=== PATIENT | female | born 1950 | race Two or more races ===

== ENCOUNTER 2020-09-19 00:42 | Inpatient (IN) | payer MEDICARE, OTHER ==
[~2020-09-19] VITALS: Ht 162.6 cm; Wt 84.4 kg
[2020-09-19] MEDS ORDERED: ONDANSETRON 4 MG/2 ML VIAL ONE (01:12)
[2020-09-19 01:13] LABS: HEMATOCRIT 23.8 % (31.2-41.9); MEAN CORPUSCULAR VOLUME 97.1 fL (75.5-95.3); PLATELET COUNT (AUTO) 127 K/uL (179-408)
[2020-09-19] MEDS ORDERED: MORPHINE SULFATE 2 MG/1 ML DISP.SYRIN ONE (01:13)
[2020-09-19] MEDS ORDERED: ONDANSETRON 4 MG/2 ML VIAL IV ONE (01:15)
[2020-09-19] MEDS ORDERED: MORPHINE SULFATE 2 MG/1 ML DISP.SYRIN IV ONE (01:15)
--- NOTE | 2020-09-19 01:16 | NUR ---
Pt bib ra today from home c/o generalized weakness and severed rt knee and rt elbow pain. The pt. reports she slipped and fell this evening at about 7pm, and did not hit her head or lose consciousness. Pt. missed 6 days of dialysis, here last dialysis was 09/14/20. Pt. started feeling weak and having diarrhea yesterday evening, causing her to miss her dialysis appointment yesterday.
[2020-09-19 01:20] LABS: BILIRUBIN,DIRECT 0.4 mg/dL (0.0-0.2); BILIRUBIN,TOTAL 0.6 mg/dL (0.2-1.0)
--- NOTE | 2020-09-19 01:30 | NUR ---
Dialysis fistula is on left arm
--- NOTE | 2020-09-19 01:32 | NUR ---
behavioral health tech Jose Potassium 6.6, Creatinine 8.00. MD Fajardo notified and made aware. No pending orders at this time.
[2020-09-19 01:34] LABS: POTASSIUM 6.6 mmol/L (3.5-5.1)
[2020-09-19] MEDS ORDERED: WARF3TAB59 PO (01:37)
[2020-09-19] MEDS ORDERED: CARV25TA2 PO (01:37)
[2020-09-19] MEDS ORDERED: ATOR80TA PO (01:37)
[2020-09-19] MEDS ORDERED: MORPHINE SULFATE 4 MG/1 ML DISP.SYRIN IV ONE (01:45)
[2020-09-19] MEDS ORDERED: INSULIN REGULAR, HUMAN 300 UNIT/3 ML VIAL IV ONE (01:45)
[2020-09-19] MEDS ORDERED: CALCIUM CHLORIDE 1 GM/10 ML DISP.SYRIN IVP ONE ×2 (01:45→01:49)
[2020-09-19] MEDS ORDERED: DEXTROSE 50% 50 ML DISP.SYRIN IV ONE ×2 (01:45→06:15)
[2020-09-19] MEDS ORDERED: SODIUM BICARBONATE 8.4% 50 MEQ/50 ML DISP.SYRIN IV ONE ×2 (01:45→01:50)
[2020-09-19] MEDS ORDERED: DEXTROSE 50% 50 ML DISP.SYRIN ONE ×2 (01:49→06:16)
[2020-09-19] MEDS ORDERED: INSULIN LISPRO 300 UNIT/3 ML VIAL SQ ONE (01:50)
[2020-09-19] MEDS ORDERED: MORPHINE SULFATE 4 MG/1 ML DISP.SYRIN ONE (02:06)
[2020-09-19] MEDS ORDERED: diphenhydrAMINE 50 MG/1 ML VIAL ONE (02:17)
[2020-09-19] MEDS ORDERED: HYDROMORPHONE 1 MG/1 ML DISP.SYRIN IV ONE (02:30)
[2020-09-19] MEDS ORDERED: diphenhydrAMINE 50 MG/1 ML VIAL IV ONE (02:30)
[2020-09-19] MEDS ORDERED: HYDROMORPHONE 1 MG/1 ML DISP.SYRIN ONE (02:38)
--- NOTE | 2020-09-19 03:37 | NUR ---
Pt taken to CT.
--- NOTE | 2020-09-19 04:03 | NUR ---
Pt returned from CT
--- NOTE | 2020-09-19 04:50 | NUR ---
Gave report to SARITHA Rahman.
--- NOTE | 2020-09-19 04:50 | NUR ---
Shelly engel in [facility] - 09/19/20 at 0451 by RUDY Gave report to SARITHA Bhat.
--- NOTE | 2020-09-19 04:51 | NUR ---
Shelly engel in [facility] - 09/19/20 at 0640 by RUDY Gave report to RN. Lise
[2020-09-19] MEDS ORDERED: Z GUARD REMEDY PASTE 57 GM TUBE TOP PRN (05:15)
[2020-09-19] MEDS ORDERED: MAGNESIUM HYDROXIDE 30 ML LIQUID UDC PO PRN (05:15)
[2020-09-19 06:00] LABS: POTASSIUM 5.7 mmol/L (3.5-5.1)
--- NOTE | 2020-09-19 06:20 | NUR ---
Jose from lab called and reported pt. blood glucose is 49. Dr. Fajardo notified. 50 mL 50% dextrose IVP ordered by Dr Fajardo and given by me. Pt. also given fabian crackers and saltines to eat. Pt is A&Ox4. Tray also ordered from dietary. Will continue to follow up on blood glucose.
--- NOTE | 2020-09-19 07:45 | NUR ---
Admitted 70 y/o female Dx Hyperkalemia from ER on a wheelchair. She is alert/oriented x4, able to make needs known. Denies pain at the time of arrival. She had x1 episode of vomiting upon transferring to the bed. Noted with redness on the right elbow. Redness and bruise noted on the right knee with minimal edema identified. She has knee support on. Skin intact to the sacral area. AV Fistula on the left upper arm noted, intact , no s/s of bleeding. WS WNL. Arrived with o2 at 2LPM via NC, saturating at 100%. No SOB or respiratory/acute distress identified. Denies chest pain. Belongings list done. Oriented the patient to her room, call light within reach. All needs attended. Seen by Dr. Knott, consent for hemodialysis was obtained. Dr Lazar aware of admission. Daughter is at bedside.
[2020-09-19] MEDS: CARVEDILOL 25 MG TABLET PO SCH ×2 (09:19→18:00)
[2020-09-19 11:31] VITALS: BP 103/40
--- NOTE | 2020-09-19 12:00 | NUR ---
Daughter reported the patient is diabetic. Reported to BRISEYDA Virk. Ordered one time accucheck due to low blood pressure. Patient blood sugar reading is 120mg/dL, CORPORATE QUALITY MANAGER aware. No order for routine accucheck given. Will continue to monitor patient for any significant changes.
[2020-09-19] MEDS: ONDANSETRON 4 MG/2 ML VIAL IV PRN ×2 (12:36→18:20)
--- NOTE | 2020-09-19 13:09 | NUR ---
PATIENT WAS NOTED WITH BP 73/35 mmHg, [place] 88. DISPATCHER SERVICE CHIEF NOTIFIED AND ORDERED MIDODRINE 10MG Q8HR PRN IF SBP IS LESS THAN 90. WILL CONTINUE TO MONITOR.
[2020-09-19] MEDS: MIDODRINE HCL 5 MG TABLET PO PRN (13:18)
[2020-09-19] MEDS ORDERED: ALBUMIN HUMAN 25% 100 ML IV PRN (13:30)
--- NOTE | 2020-09-19 15:54 | NUR ---
ELEMENTARY SCHOOL BAND DIRECTOR REPORTED THE PATIENT HAS 1600 OUTPUT, BP 109/48 HR 86. PATIENT DENIES DISCOMFORT/PAIN. DRESSING INTACT AND NO S/S OF BLEEDING NOTED. WILL CONTINUE TO MONITOR.
[2020-09-19 16:58] VITALS: BP 89/33
[2020-09-19] MEDS ORDERED: WARFARIN SODIUM 2 MG TABLET PO SCH (17:00)
[2020-09-19] MEDS ORDERED: WARFARIN SODIUM 5 MG TABLET PO ONE (17:00)
--- NOTE | 2020-09-19 19:01 | NUR ---
Patient was noted with 2x emesis during the shift, given Zofran as ordered, tolerated well. All needs attended. Due meds given as ordered. Kept comfortable. Endorsed.
[2020-09-19 20:00] VITALS: BP 108/36
[2020-09-19] MEDS: ATORVASTATIN 40 MG TABLET PO SCH (20:57)
[2020-09-19] MEDS: ACETAMINOPHEN 325 MG TABLET PO PRN (20:57)
[2020-09-19] MEDS: ACIDOPHILUS/BULGARICUS CHEW TAB GT SCH (21:05)
[2020-09-20] VITALS (12 sets, daily range): BP systolic 85–126; BP diastolic 42–100
[2020-09-20] MEDS: ONDANSETRON 4 MG/2 ML VIAL IV PRN ×2 (01:59→14:54)
[2020-09-20 03:41] LABS: HEMATOCRIT 21.2 % (31.2-41.9)
[2020-09-20 03:43] LABS: MEAN CORPUSCULAR HEMOGLOBIN 31.6 uug (24.7-32.8); MEAN CORPUSCULAR VOLUME 98.8 fL (75.5-95.3); PLATELET COUNT (AUTO) 95 K/uL (179-408)
--- NOTE | 2020-09-20 03:57 | NUR ---
Pt had a Big BM that is bloody but has no clots; labs done early and H/H came back 6.6/21.2; VS as follows : BP 100/50 IA 95 RR 16 and is afebrile; all relayed to Dr Carter and awaiting orders; pt placed on bedrest; pt is being observed closely
[2020-09-20 04:05] LABS: CREATININE 6.6 mg/dL (0.6-1.3); MAGNESIUM 2.5 mg/dL (1.8-2.4); PHOSPHOROUS 5.2 mg/dL (2.5-4.9); POTASSIUM 5.7 mmol/L (3.5-5.1)
--- NOTE | 2020-09-20 05:38 | NUR ---
Dr Barker ordered PRBC and DC coumadin; pt signed consent and awaiting PRBC Blood bank.
[2020-09-20] MEDS: ACIDOPHILUS/BULGARICUS CHEW TAB GT SCH ×3 (06:00→21:02)
[2020-09-20] MEDS: CARVEDILOL 25 MG TABLET PO SCH ×2 (08:00→18:00)
[2020-09-20] MEDS: MIDODRINE HCL 5 MG TABLET PO PRN (09:34)
[2020-09-20] MEDS: ACETAMINOPHEN 325 MG TABLET PO PRN (11:41)
--- NOTE | 2020-09-20 12:40 | NUR ---
Patient received 1 unit PRBC as ordered. Vital signs monitored. Patient tolerated well. Patient denied pain/ discomfort. Safety measures provided. Will continue to monitor.
[2020-09-20] MEDS: MIDODRINE HCL 5 MG TABLET PO SCH ×2 (14:54→21:03)
[2020-09-20] MEDS ORDERED: COUMADIN VARIABLE DOSE REMINDE XX SCH (17:00)
--- NOTE | 2020-09-20 19:05 | NUR ---
chief operator hydroformer reported 1500ml of output. BP 90/39, HR 90. Patient denies discomfort or pain. Will continue to monitor.
--- NOTE | 2020-09-20 19:45 | NUR ---
Received patient alert and able to make needs known.Denies pain at this time.No s/s of distress noted. O2 at 4LPM via mask saturating at 99%.IV on Right hand 20 g. Vss .Call light with in reach. Daughter at bedside.Will continue to monitor.
[2020-09-20] MEDS: ATORVASTATIN 40 MG TABLET PO SCH (20:49)
[2020-09-21 00:29] VITALS: BP 107/49
[2020-09-21 04:29] VITALS: BP 103/48
[2020-09-21] MEDS: MIDODRINE HCL 5 MG TABLET PO SCH ×3 (05:22→21:40)
[2020-09-21] MEDS: ACIDOPHILUS/BULGARICUS CHEW TAB GT SCH ×3 (05:45→21:36)
--- NOTE | 2020-09-21 06:43 | NUR ---
Patient awake, no acute distress noted.Patient trying to pulled out O2 mask.Denies SOB.Titrate O2 at 2LPM via NC.Patient IV was out,unable to start Iv line after 3x attempt. Will endorse to oncoming shift. All needs anticipated and met accordingly.
[2020-09-21 07:12] LABS: CREATININE 5.4 mg/dL (0.6-1.3); POTASSIUM 5.2 mmol/L (3.5-5.1)
[2020-09-21 07:17] LABS: HEMATOCRIT 21.6 % (31.2-41.9); MEAN CORPUSCULAR HEMOGLOBIN 31.5 uug (24.7-32.8); MEAN CORPUSCULAR VOLUME 97.5 fL (75.5-95.3); PLATELET COUNT (AUTO) 105 K/uL (179-408)
--- NOTE | 2020-09-21 07:30 | NUR ---
Sleeping, appears comfortable. O2 at 2L/NC with O2 sat of 98%
[2020-09-21] MEDS: CARVEDILOL 25 MG TABLET PO SCH ×2 (08:00→17:11)
--- NOTE | 2020-09-21 09:00 | NUR ---
No IV access, several unsuccessful attempts prior shift. With orders for midline insertion, cutting department supervisor informed
[2020-09-21] MEDS: ONDANSETRON 4 MG/2 ML VIAL IV PRN (10:27)
--- NOTE | 2020-09-21 10:30 | NUR ---
With BM 2 x bloody loose stool in large amount. Vomiting, Zofran to be given by HD nurse
--- NOTE | 2020-09-21 12:25 | NUR ---
WOUND CARE CONSULT: NO NEED FOR WOUND CONSULT PER RN. RN STATES PT HAS BRUISING/DISCOLORATION ON RT ARM ONLY. WILL SEE PRN.
[2020-09-21] MEDS ORDERED: GOLYTELY 4000 ML BOTTLE PO ONE (14:00)
--- NOTE | 2020-09-21 14:00 | NUR ---
Hemodialysis done with 1500 output
[2020-09-21] MEDS: PANTOPRAZOLE SODIUM 40 MG VIAL IV SCH ×2 (15:12→22:18)
--- NOTE | 2020-09-21 15:15 | NUR ---
Dr. Kirk for GI consult for bloody stool with orders for Colonoscopy. Procedure explained by Sully RAIN to patient's daughter at bedside. Consent signed by daughter per patient's request. Started on clear liquids. Golytely started.
[2020-09-21 15:28] VITALS: BP 135/44
[2020-09-21] MEDS: ACETAMINOPHEN 325 MG TABLET PO PRN (17:11)
--- NOTE | 2020-09-21 17:27 | NUR ---
Reports of knee pain, Tylenol po given. Noted low BP, Placed patient back to laying on bed form sitting at the edge of bed
[2020-09-21 20:00] VITALS: BP 133/53
[2020-09-21] MEDS: ATORVASTATIN 40 MG TABLET PO SCH (21:40)
[2020-09-22] VITALS (11 sets, daily range): BP systolic 107–173; BP diastolic 32–69
--- NOTE | 2020-09-22 04:44 | NUR ---
Patient slept intermittently.Golytely was given. Patient had large BMx 5.Npo after midnight .Aware of her procedure this morning.Midline on right upper arm 18 patent and intact.All needs anticipated and met accordingly.
[2020-09-22] MEDS: ACIDOPHILUS/BULGARICUS CHEW TAB GT SCH ×3 (06:00→21:00)
[2020-09-22] MEDS: MIDODRINE HCL 5 MG TABLET PO SCH ×3 (06:00→21:44)
[2020-09-22 06:39] LABS: MEAN CORPUSCULAR VOLUME 96.9 fL (75.5-95.3); PLATELET COUNT (AUTO) 112 K/uL (179-408)
[2020-09-22 06:42] LABS: MEAN CORPUSCULAR HEMOGLOBIN 31.5 uug (24.7-32.8)
[2020-09-22 06:58] LABS: CREATININE 4.6 mg/dL (0.6-1.3); POTASSIUM 4.1 mmol/L (3.5-5.1)
--- NOTE | 2020-09-22 07:21 | NUR ---
Received call from lab regarding HGb is 6.[address] Lazar notified. Endorsed to morning shift nurse.
--- NOTE | 2020-09-22 08:00 | NUR ---
Patient was brought down to the OR for colonoscopy, signed consent was given.
[2020-09-22] MEDS ORDERED: PHYTONADIONE 10 MG/1 ML AMPUL SQ ONE (09:00)
[2020-09-22] MEDS ORDERED: PHYTONADIONE 10 MG/1 ML AMPUL ONE (09:03)
[2020-09-22] MEDS ORDERED: LIDOCAINE-MPF 2% 5 ML VIAL IJ ONE (09:28)
[2020-09-22] MEDS ORDERED: IV NORMAL SALINE 1000 ML BAG IV ONE (09:28)
[2020-09-22] MEDS ORDERED: PROPOFOL 200 MG/20 ML BOTTLE IV ONE (09:28)
--- NOTE | 2020-09-22 09:30 | NUR ---
Per dialysis nurse, patient will not have dialysis today, Sully Andino made aware, patient made aware.
--- NOTE | 2020-09-22 10:29 | NUR ---
Patient came back to the unit. Patient is asleep. Per Sully Andino and per endorsed by the OR nurse to do BT and give vitamin K stat.
[2020-09-22] MEDS: CARVEDILOL 25 MG TABLET PO SCH ×2 (10:40→17:53)
[2020-09-22] MEDS: PANTOPRAZOLE SODIUM 40 MG VIAL IV SCH ×2 (10:41→21:00)
[2020-09-22 14:46] LABS: EOSINOPHILS % (MANUAL) 5 % (0-8); LYMPHOCYTES % (MANUAL) 18 % (20-40); MONOCYTES % (MANUAL) 12 % (2-10); NEUTROPHILS % (MANUAL) 65 % (42-75)
--- NOTE | 2020-09-22 14:46 | NUR ---
Blood transfusion is ready, 2 nurses verified at bedside. VS are stable, patient has no s/s of distress. Started giving patient blood transfusion. VS is taken every 15 mins and every 30 mins. Patient denies of any pain, VS stable will continue to monitor.
[2020-09-22] MEDS: ACETAMINOPHEN 325 MG TABLET PO PRN (17:54)
[2020-09-22] MEDS: ATORVASTATIN 40 MG TABLET PO SCH (21:00)
[2020-09-23 00:40] VITALS: BP 120/36
[2020-09-23 04:20] VITALS: BP 149/49
[2020-09-23] MEDS: MIDODRINE HCL 5 MG TABLET PO SCH ×3 (06:00→20:54)
[2020-09-23] MEDS: ACIDOPHILUS/BULGARICUS CHEW TAB GT SCH ×3 (06:06→20:54)
--- NOTE | 2020-09-23 06:08 | NUR ---
pt tolerated her Blood transfusion last night; midodrine not given twice because bp parameters are not met; safety maintained; no bleeding observed; continue to monitor; continue plan of care.
[2020-09-23 07:35] LABS: HEMATOCRIT 23.8 % (31.2-41.9); MEAN CORPUSCULAR HEMOGLOBIN 31.7 uug (24.7-32.8); PLATELET COUNT (AUTO) 106 K/uL (179-408)
[2020-09-23 07:49] LABS: CREATININE 5.4 mg/dL (0.6-1.3); POTASSIUM 4.9 mmol/L (3.5-5.1)
--- NOTE | 2020-09-23 08:15 | NUR ---
SALES REPRESENTATIVE [employer] HERE AND STARTED THE DIALYSIS ORDERED PATIENT IS RESTING AND TOLERATING THE PROCEDURE WELL BLOOD PRESSURE IS IN THE 140S SYSTOLIC WILL HOLD OFF ON HER MEDICATIONS UNTIL AFTER THE DIALYSIS.
[2020-09-23] MEDS: CARVEDILOL 25 MG TABLET PO SCH ×2 (11:21→17:12)
[2020-09-23] MEDS: PANTOPRAZOLE SODIUM 40 MG VIAL IV SCH (11:21)
--- NOTE | 2020-09-23 11:30 | NUR ---
DIALYSIS COMPLETED ORDERED AND 1.5 LITERS REMOVED PATIENT TOLERATED PROCEDURE WELL LEFT FOREARM AV SHUNT REMAINS INTACT WITH NO BLEEDING AT THIS TIME WILL CONTINUE TO OBSERVE.
[2020-09-23 12:00] VITALS: BP 165/91
--- NOTE | 2020-09-23 14:05 | NUR ---
ASSISTED TO THE BATHROOM VOIDED AND ASSISTED BACK INTO BED NOT IN DISTRESS AT THIS TIME
[2020-09-23 16:30] VITALS: BP_SYST 103; BP_SYST 104; BP_DIAS 47; BP_DIAS 56
[2020-09-23] MEDS ORDERED: PANTOPRAZOLE SODIUM 40 MG TABLET.DR PO SCH (17:00)
[2020-09-23] MEDS: ACETAMINOPHEN 325 MG TABLET PO PRN (18:28)
--- NOTE | 2020-09-23 18:30 | NUR ---
PATIENT SEEN BY LOLITA ANSARI WITH ORDER FOR XRAY RIGHT FOREARM AND WRIST AND WAS MEDICATED WITH TYLENOL ORDERED WILL OBSERVE.
[2020-09-23 20:06] VITALS: BP 109/44
[2020-09-23] MEDS: ATORVASTATIN 40 MG TABLET PO SCH (20:46)
[2020-09-24 00:03] VITALS: BP 129/50
[2020-09-24 04:06] VITALS: BP 109/50
[2020-09-24] MEDS: MIDODRINE HCL 5 MG TABLET PO SCH ×3 (05:17→21:04)
[2020-09-24] MEDS: ACIDOPHILUS/BULGARICUS CHEW TAB GT SCH ×3 (05:17→21:02)
--- NOTE | 2020-09-24 05:45 | NUR ---
Patient AAOX3, no sob, no c/o pain noted, A-V shunt on left upper arm, patient slept well during the last night, call light with in easy reach, will continue to monitor.
--- NOTE | 2020-09-24 07:30 | NUR ---
RECEIVED PATIENT IN BED AWAKE ALERT AND ORIENTED WITH O2 WITH NO S/S OF INFILTERATION ON SITE LEFT ARM AV SHUNT REMAINS INTACT WITH POSITIVE BRUIT AND THRILL RIGHT UPPER ARM MID LINE IS INTACT TELE IS SR AT THIS TIME CALL LIGHTS AND PERSONAL BELONGINGS ARE WITHIN EASY REACH AT THIS TIME MADE COMFORTABLE AND WILL CONTINUE TO OBSERVE.
[2020-09-24 07:37] LABS: HEMATOCRIT 23.8 % (31.2-41.9); MEAN CORPUSCULAR HEMOGLOBIN 31.1 uug (24.7-32.8); MEAN CORPUSCULAR VOLUME 95.9 fL (75.5-95.3); PLATELET COUNT (AUTO) 93 K/uL (179-408)
[2020-09-24] MEDS: PANTOPRAZOLE SODIUM 40 MG VIAL IV SCH ×2 (08:42→20:35)
[2020-09-24] MEDS: CARVEDILOL 25 MG TABLET PO SCH ×2 (08:42→18:00)
--- NOTE | 2020-09-24 11:30 | NUR ---
PATIENT SEEN AND EXAMINED BY LOLITA ANSARI WITH NEW ORDERS AND NOTED.
[2020-09-24 11:41] VITALS: BP 117/42
[2020-09-24] MEDS: ACETAMINOPHEN 325 MG TABLET PO PRN (12:19)
--- NOTE | 2020-09-24 12:20 | NUR ---
PATIENT C/O HAVING GENERALISED ACHES AND PAIN MEDICATED WITH TYLENOL ORDERED WILL OBSERVE.
--- NOTE | 2020-09-24 13:59 | NUR ---
ECHO COMPLETED AND ITS 45 PERCENT EF CHEST XRAY SHOWS BILATERAL PLEURAL EFFUSSION WITH THE LEFT LARGER THAN THE RIGHT
--- NOTE | 2020-09-24 15:18 | NUR ---
LOLITA ANSARI BACKER UP AWARE OF THE CHEST XRAY RESULTS OF WORSENING CHF AND ASHLEY PLEURAL EFFUSSION LEFT GREATER THAN THE RIGHT.NO NEW ORDERS AT THIS TIME.
--- NOTE | 2020-09-24 15:36 | NUR ---
ALARM INVESTIGATOR HERE AND STARTED DIALYSIS ORDERED POTASSIUM LEVEL IS 5.0
[2020-09-24 15:54] VITALS: BP 119/48
--- NOTE | 2020-09-24 17:00 | NUR ---
DR SHAY HERE TO SEE PATIENT AND AWARE OF ORDER FOR THORACENTHESIS TOMORROW STATED WILL PUT IN ORDERS TOMORROW FOR ANALYSIS
--- NOTE | 2020-09-24 17:50 | NUR ---
DIALYSIS COMPLETED AND 1.5 LITERS REMOVED PATIENT TOLERATED WELL.
--- NOTE | 2020-09-24 18:00 | NUR ---
CONSCENT OBTAINED FOR THORACENTHESIS LARGE RIGHT SIDED PLEURAL EFFUSSION
[2020-09-24 20:00] VITALS: BP 120/33
--- NOTE | 2020-09-24 20:00 | NUR ---
RECEIVED PATIENT AWAKE IN BED. A/O X3-4. SOMALI SPEAKING, BUT ABLE TO MAKE NEEDS KNOWN. RECEIVED CALL FROM SURGERY TO INFORM THAT PATIENT WILL BE HAVING EGD AT 0830AM. VSS. PATIENT DENIES ANY PAIN OR DISCOMFORT. ON 02 2L NC SATING WELL. CALL LIGHT IN REACH. ALL NEEDS ATTENDED. WILL CONTINUE TO MONITOR AND ASSESS.
[2020-09-24] MEDS: ATORVASTATIN 40 MG TABLET PO SCH (21:02)
[2020-09-25] VITALS: BP 139/51
[2020-09-25 04:00] VITALS: BP 123/49
[2020-09-25] MEDS: ACIDOPHILUS/BULGARICUS CHEW TAB GT SCH ×3 (05:22→21:11)
[2020-09-25] MEDS: MIDODRINE HCL 5 MG TABLET PO SCH ×3 (05:23→21:10)
--- NOTE | 2020-09-25 05:53 | NUR ---
PATIENT AWAKE IN BED. NPO SINCE MIDNIGHT. CONSENT SIGNED FOR EGD THIS AM. VS WNL. MIDODRINE HELD PER MD ORDER. SLEPT AT INTERVALS. DENIES PAIN. ON TELE SR. CALL LIGHT IN REACH. ALL NEEDS ATTENDED. WILL CONTINUE TO MONITOR AND ASSESS.
[2020-09-25 06:28] LABS: HEMATOCRIT 23.6 % (31.2-41.9); MEAN CORPUSCULAR HEMOGLOBIN 31.1 uug (24.7-32.8); MEAN CORPUSCULAR VOLUME 96.2 fL (75.5-95.3); PLATELET COUNT (AUTO) 90 K/uL (179-408)
[2020-09-25 06:42] LABS: CREATININE 4.8 mg/dL (0.6-1.3); POTASSIUM 5.5 mmol/L (3.5-5.1)
--- NOTE | 2020-09-25 07:30 | NUR ---
AWAKE ALERT AND ORIENTED NPO FOR EGD ORDERED DENIES DISCOMFORTS AT THIS TIME REMAIN ON O2 WITH NO SHORTNESS OF BREATH RIGHT UPPER ARM MID LINE REMAINS INTACT LEFT ARM AV SHUNT IS INTACT CALL LIGHTS AND HER PERSONAL BELONGINGS ARE WITHIN EASY REACH AT THIS TIME WILL CONTINUE TO OBSERVE.
[2020-09-25] MEDS: CARVEDILOL 25 MG TABLET PO SCH ×2 (08:00→17:07)
--- NOTE | 2020-09-25 08:10 | NUR ---
PATIENT PICKED UP BY BED TO THE OR FOR THE SCHEDULED EGD.
[2020-09-25] MEDS ORDERED: MIDAZOLAM HCL 2 MG/2 ML VIAL ONE (08:31)
[2020-09-25] MEDS ORDERED: ONDANSETRON 4 MG/2 ML VIAL ONE (09:17)
[2020-09-25] MEDS: PANTOPRAZOLE SODIUM 40 MG VIAL IV SCH ×2 (09:48→20:41)
[2020-09-25 11:37] VITALS: BP 127/46
[2020-09-25] MEDS: ACETAMINOPHEN 325 MG TABLET PO PRN ×2 (11:55→20:46)
--- NOTE | 2020-09-25 12:42 | NUR ---
PATIENT SEEN AND EXAMINED BY DR SHAY WITH NEW ORDERS AND NOTED
--- NOTE | 2020-09-25 12:43 | NUR ---
QUENTIN MARTINEZ [facility] PROVIDER HERE SEEN PATIENT WITH NEW ORDERS AND NOTED
[2020-09-25 15:21] VITALS: BP 122/48
--- NOTE | 2020-09-25 16:30 | NUR ---
RIGHT THORACENTESIS COMPLETED ORDERED AND 1500 ML PALE YELLOW FLUID REMOVED AND SENT TO THE LAB INCLUDING THE FLUID IN THE TUBE AND SYRING ORDERED PATIENT TOLERATED THE PROCEDURE WELL RIGHT SIDE WITH DRESSING DRY AND INTACT AT THIS TIME.
--- NOTE | 2020-09-25 17:39 | NUR ---
SITTING UP ON THE BED IN HER ROOM WITH HER DAUGHTER AT THE BEDSIDE SHE IS EATING DINNER WITH HER O2 WITH NO SOB AND NO DISTRESS AT THIS TIME.WILL CONTINUE TO OBSERVE.
[2020-09-25] MEDS ORDERED: PROPOFOL 200 MG/20 ML BOTTLE IV ONE (18:00)
[2020-09-25] MEDS ORDERED: LIDOCAINE-MPF 2% 5 ML VIAL IJ ONE (18:00)
[2020-09-25 20:00] VITALS: BP 125/39
[2020-09-25] MEDS: ATORVASTATIN 40 MG TABLET PO SCH (20:42)
--- NOTE | 2020-09-25 20:45 | NUR ---
PATIENT IS IN BED AWAKE ALERT AND ORIENTED ON O2 ORDERED WITH NO SHORTNESS OF BREATH AT THIS TIME AV SHUNT WITH BRUIT AND THRILL RIGHT UPPER ARM MIDLINE IS INTACT WITH NO S/S OF INFILTERATION S/P THORACENTHESIS WITH NO BLEEDING OR DRAINAGE ON SITE WITH BAND AIDE DRESSING DRY AND INTACT CALL LIGHTS AND PERSONAL BELONGINGS ARE WITHIN EASY REACH WILL CONTINUE TO OBSERVE.
[2020-09-26 04:00] VITALS: BP 113/53
[2020-09-26] MEDS: MIDODRINE HCL 5 MG TABLET PO SCH ×3 (05:05→22:00)
[2020-09-26] MEDS: ACIDOPHILUS/BULGARICUS CHEW TAB GT SCH ×3 (05:24→21:20)
[2020-09-26] MEDS: ACETAMINOPHEN 325 MG TABLET PO PRN ×3 (05:24→21:33)
--- NOTE | 2020-09-26 05:24 | NUR ---
AWAKE STATED C/O HAS PAIN ON HER RIGHT LEG AND RIGHT ARM MEDICATED WITH TYLENOL ORDERED MADE RIGHT FLANK AREA S/P THORACENTESIS WITH BAND AIDE DRY AND INTACT NO SOB REMAIN ON O2 WITH NO SHORTNESS OF BREATH MADE COMFORTABLE WILL CONTINUE TO OBSERVE.
[2020-09-26 07:45] VITALS: BP 93/63
[2020-09-26] MEDS: CARVEDILOL 25 MG TABLET PO SCH ×2 (08:00→17:40)
--- NOTE | 2020-09-26 08:00 | NUR ---
received awake alert and oriented, on room air at this moment with sat 97%, denies of pain, states slept good last night, no bleeding noted, left av shunt with good bruit and thrill, explained plan of care- verbalized understanding, safety measures maintained, call light within reach
[2020-09-26 08:11] LABS: CREATININE 5.6 mg/dL (0.6-1.3); MAGNESIUM 2.1 mg/dL (1.8-2.4); POTASSIUM 5.8 mmol/L (3.5-5.1)
[2020-09-26 08:20] LABS: HEMATOCRIT 22.9 % (31.2-41.9); MEAN CORPUSCULAR HEMOGLOBIN 31.5 uug (24.7-32.8); MEAN CORPUSCULAR VOLUME 96.6 fL (75.5-95.3); PLATELET COUNT (AUTO) 89 K/uL (179-408)
[2020-09-26] MEDS: PANTOPRAZOLE SODIUM 40 MG VIAL IV SCH (08:28)
--- NOTE | 2020-09-26 10:00 | NUR ---
ambulated in edwards with walker with assist-tolerated well
[2020-09-26 11:37] VITALS: BP 131/65
--- NOTE | 2020-09-26 13:10 | NUR ---
medicated with tylenol 650mg for c/o pain on right arm
[2020-09-26 14:00] VITALS: BP 110/41
[2020-09-26] MEDS: PANTOPRAZOLE SODIUM 40 MG TABLET.DR PO SCH (17:39)
--- NOTE | 2020-09-26 18:00 | NUR ---
had dialysis during this shift,2L out, av fistula dsg dry and intact, pt to be d/cd tomorrow-pt and daughter aware. No distress noted, all needs attended and met, safety measures maintained, call light within reach
[2020-09-26] MEDS: ATORVASTATIN 40 MG TABLET PO SCH (20:22)
[2020-09-26 20:43] VITALS: BP 95/57
--- NOTE | 2020-09-26 21:45 | NUR ---
Patient in bed awake and verbally responsive.No s/s of distress noted.c/o right arm pain.Tylenol given with good effect.Midline on right FA patent and intact. AV shunt on left arm with good bruit and thrill. No active bleeding .Call light with in reach. Continue safety measures.
[2020-09-27 04:00] VITALS: BP 110/74
[2020-09-27] MEDS: ACIDOPHILUS/BULGARICUS CHEW TAB GT SCH ×2 (05:26→14:10)
[2020-09-27] MEDS: MIDODRINE HCL 5 MG TABLET PO SCH ×2 (05:27→14:00)
[2020-09-27] MEDS: PANTOPRAZOLE SODIUM 40 MG TABLET.DR PO SCH (06:08)
--- NOTE | 2020-09-27 07:30 | NUR ---
Patient received alert and oriented x4, Romanian speaking. Right UA midline is intact with no redness or swelling noted at this time. Patient on RA with no SOB or difficulties breathing. No acute distress noted. Left arm AV shunt is intact. Personal belongings and call light are within easy reach. Will continue to monitor.
[2020-09-27] MEDS: ACETAMINOPHEN 325 MG TABLET PO PRN ×2 (09:40→17:02)
[2020-09-27] MEDS: CARVEDILOL 25 MG TABLET PO SCH (09:40)
[2020-09-27 12:00] VITALS: BP 124/46
[2020-09-27 12:04] LABS: POTASSIUM 5.1 mmol/L (3.5-5.1)
[2020-09-27 12:07] LABS: HEMATOCRIT 23.6 % (31.2-41.9); MEAN CORPUSCULAR HEMOGLOBIN 31.1 uug (24.7-32.8); MEAN CORPUSCULAR VOLUME 98.1 fL (75.5-95.3); PLATELET COUNT (AUTO) 86 K/uL (179-408)
[2020-09-27 12:16] LABS: CREATININE 5.1 mg/dL (0.6-1.3)
[2020-09-27] MEDS ORDERED: IV LACTATED RINGERS SOLUTION 1,000 ML IV PRN (12:30)
[2020-09-27] MEDS ORDERED: WARF3TAB59 PO (12:51)
[2020-09-27] MEDS ORDERED: MIDO10TA PO (12:51)
[2020-09-27 15:43] VITALS: BP 130/49
--- NOTE | 2020-09-27 16:30 | NUR ---
Patient refuses wound pictures at this time.
--- NOTE | 2020-09-27 17:00 | NUR ---
Patient's daughter at bedside for discharge. Patient and daughter express understanding of discharge orders. Patient discharged in satisfactory condition with all her personal belongings.
== END 2020-09-27 17:00 | disposition home health service (06) | DRG 291 ==
LOC: ER 00:46 → TELE3 02:00 → MEDSURG3 09-26 17:34
PROVIDERS: ADMIT Nurse Practitioner Acute Care; ATTEND Nurse Practitioner Acute Care
PROC: 5A1D70Z Performance of Urinary Filtration, Intermittent, Less than 6 Hours Per Day (ICD-10-PCS; principal; 2020-09-19)
PROC: 30233N1 Transfusion of Nonautologous Red Blood Cells into Peripheral Vein, Percutaneous Approach (ICD-10-PCS; 2020-09-20)
PROC: 0DJD8ZZ Inspection of Lower Intestinal Tract, Via Natural or Artificial Opening Endoscopic (ICD-10-PCS; 2020-09-22)
PROC: 0W993ZZ Drainage of Right Pleural Cavity, Percutaneous Approach (ICD-10-PCS; 2020-09-24)
PROC: 0W993ZX Drainage of Right Pleural Cavity, Percutaneous Approach, Diagnostic (ICD-10-PCS; 2020-09-24)
PROC: 0DB68ZX Excision of Stomach, Via Natural or Artificial Opening Endoscopic, Diagnostic (ICD-10-PCS; 2020-09-25)
DX: I13.2 Hypertensive heart and chronic kidney disease with heart failure and with stage 5 chronic kidney disease, or end stage renal disease (principal); N18.6 End stage renal disease; I48.20 Chronic atrial fibrillation, unspecified; J98.11 Atelectasis; R18.8 Other ascites; J91.8 Pleural effusion in other conditions classified elsewhere; E87.5 Hyperkalemia; Z99.2 Dependence on renal dialysis; I48.91 Unspecified atrial fibrillation; E11.22 Type 2 diabetes mellitus with diabetic chronic kidney disease; E87.70 Fluid overload, unspecified; I50.810 Right heart failure, unspecified; Z91.15 Patient's noncompliance with renal dialysis; E66.01 Morbid (severe) obesity due to excess calories; E78.5 Hyperlipidemia, unspecified; D69.6 Thrombocytopenia, unspecified; I27.20 Pulmonary hypertension, unspecified; I42.9 Cardiomyopathy, unspecified; Z79.01 Long term (current) use of anticoagulants; Z20.822 Contact with and (suspected) exposure to COVID-19; K52.9 Noninfective gastroenteritis and colitis, unspecified; Z87.891 Personal history of nicotine dependence; M25.511 Pain in right shoulder; M25.561 Pain in right knee; Z91.81 History of falling; K64.8 Other hemorrhoids; I07.1 Rheumatic tricuspid insufficiency; M17.11 Unilateral primary osteoarthritis, right knee; I95.9 Hypotension, unspecified; K29.70 Gastritis, unspecified, without bleeding; Z68.32 Body mass index [BMI] 32.0-32.9, adult; I70.0 Atherosclerosis of aorta; E83.51 Hypocalcemia; D63.1 Anemia in chronic kidney disease; D50.0 Iron deficiency anemia secondary to blood loss (chronic)
CPT/HCPCS: 32555; 36415; 70030-TC; 71045; 71250; 73080; 73090; 73110; 73562; 83605; 83615; 83735; 83986; 84100; 84155; 85025; 85610; 85730; 86625; 86850; 86900; 86901; 86920; 87040; 87046; 87070; 87205; 88313-TC; 88342; 90937; 93005; 93307; 97161; A4217; A4663; C9113; G0378; J1170; J1200; J2250; J2270; J2405; J3430; J3490; J7030; J7040; J7050; P9016; P9021; P9047